=== PATIENT | female | born 1970 | race Two or more races ===

== ENCOUNTER 2020-09-29 15:17 | Emergency (ER) | payer BC, OTHER ==
[~2020-09-29] VITALS: Ht 160 cm; Wt 92.7 kg
[~2020-09-29 15:17] MED LIST: METF500T17 PO
[2020-09-29 15:25] VITALS: BP 136/86
[2020-09-29 17:33] LABS: ALANINE AMINOTRANSFERASE 28 U/L (12-78); ANION GAP 4 mmol/L (5-15); CALCIUM 9.2 mg/dL (8.5-10.1); CHLORIDE 105 mmol/L (98-107); CREATININE 0.79 mg/dL (0.55-1.02)
[2020-09-29 17:36] LABS: ALKALINE PHOSPHATASE 156 U/L (45-117); BILIRUBIN,TOTAL 0.4 mg/dL (0.2-1.0); TOTAL PROTEIN 8.1 g/dL (6.4-8.2)
[2020-09-29 18:10] LABS: BASOPHILS % (AUTO) 1 % (0-1); EOSINOPHILS % (AUTO) 2 % (1-7); LYMPHOCYTES % (AUTO) 34 % (22-44); MEAN CORPUSCULAR HEMOGLOBIN 28.6 pg (27.0-34.8); MEAN CORPUSCULAR HGB CONC 33.8 g/dL (32.4-35.8); MEAN PLATELET VOLUME 8.6 fL (7.4-10.4); MONOCYTES % (AUTO) 5 % (2-9); NEUTROPHILS % (AUTO) 58 % (42-75); PLATELET COUNT 273 x10^3/uL (130-400); RED BLOOD COUNT 5.31 x10^6/uL (3.82-5.3); RED CELL DISTRIBUTION WIDTH 13.8 % (9.6-15.2)
[2020-09-29 18:11] LABS: MD NO
== END 2020-09-29 18:28 | disposition home or self-care (01) ==
LOC: ED 18:00
DX: G62.9 Polyneuropathy, unspecified (principal); M79.661 Pain in right lower leg; M79.651 Pain in right thigh; E11.9 Type 2 diabetes mellitus without complications; R00.0 Tachycardia, unspecified
CPT/HCPCS: 36415; 80053; 85025; 93005; 99285